=== PATIENT | female | born 1955 | race Caucasian/White ===

== ENCOUNTER 2021-01-02 04:42 | Day surgery (SDC) | payer MEDICARE, OTHER ==
[2021-01-01 10:18] VITALS: BMI 32.3
[2021-01-02] MEDS ORDERED: SUCCINYLCHOLINE CHLORIDE 200 MG/10 ML SYRINGE ONE (07:23)
[2021-01-02] MEDS ORDERED: ACETAMINOPHEN 1000 MG/100 ML VIAL (NON FORMULARY) IVPB ONE (07:27)
[2021-01-02] MEDS ORDERED: IBUPROFEN 800 MG/8 ML IJ IVPB SCH (07:30)
[2021-01-02] MEDS ORDERED: DEXTROSE 5%-0.45% SALINE 1,000 ML IV SCH (07:30)
[2021-01-02] MEDS ORDERED: PROPOFOL 20 ML ONE (07:37)
[2021-01-02] MEDS ORDERED: ceFAZolin SODIUM 1 GM VIAL IVPB ONE (07:47)
[2021-01-02] MEDS ORDERED: oxyCODONE HCL 5 MG TABLET PO PRN (08:57)
[2021-01-02] MEDS ORDERED: PROMETHAZINE HCL 25 MG/1 ML VIAL IVPB PRN (08:57)
[2021-01-02] MEDS ORDERED: ONDANSETRON 4 MG/2 ML VIAL IVPUSH PRN (08:57)
[2021-01-02] MEDS ORDERED: MIDAZOLAM HCL 2 MG/2 ML SINGLE DOSE VIAL ONE (09:02)
[2021-01-02] MEDS ORDERED: ACETAMINOPHEN INJECTION 100 ML IVPB ONE (09:08)
[2021-01-02 12:43] VITALS: BP 127/65; PULSE 73; TEMP 97.7
== END 2021-01-02 12:45 | disposition home or self-care (01) ==
LOC: JASU-SURG 04:42
PROVIDERS: ATTEND Urology
PROC: 0TJB8ZZ Inspection of Bladder, Via Natural or Artificial Opening Endoscopic (ICD-10-PCS; 2021-01-02)
PROC: 0TSD0ZZ Reposition Urethra, Open Approach (ICD-10-PCS; principal; 2021-01-02 07:30)
PROC: 0JQC0ZZ Repair Pelvic Region Subcutaneous Tissue and Fascia, Open Approach (ICD-10-PCS; 2021-01-02 07:30)
DX: N39.3 Stress incontinence (female) (male) (principal); N81.10 Cystocele, unspecified; N36.41 Hypermobility of urethra
CPT/HCPCS: 57240; 57288; C1771; 94760; J0131